=== PATIENT | male | born 1985 | race Caucasian/White ===

== ENCOUNTER 2016-11-17 04:47 | Inpatient (IN) | payer MEDICAID, OTHER ==
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
[2016-11-17] MEDS ORDERED: ZIPRASIDONE 20 MG VIAL IM PRN (08:11)
[2016-11-17] MEDS ORDERED: LORazepam 1 MG TAB PO PRN (08:11)
[2016-11-17] MEDS ORDERED: MAGNESIUM HYDROXIDE 2,400 MG/10 ML CUP PO PRN (08:11)
[2016-11-17] MEDS ORDERED: MAG HYDROX/AL HYDROX/SIMETH 30 ML CUP PO PRN (08:11)
[2016-11-17] MEDS ORDERED: ACETAMINOPHEN TAB 325 MG TAB PO PRN (08:11)
[2016-11-17 09:19] LABS: Appearance,Urine Clear (Clear); Bilirubin,Urine Negative (Negative); Glucose,Urine (UA) 1+ (Negative); Ketones,Urine Negative (Negative); Leukocyte Esterase,Urine Negative (Negative); Nitrite,Urine Negative (Negative); PH, Urine 5.5 (5.0-8.0); Protein,Urine Trace (Negative); Specific Gravity,Urine 1.019 (1.001-1.035); UA Billing (MACRO vs. MICRO) CHEM; Urobilinogen,Urine <2.0 mg/dL (<2.0)
[2016-11-17 09:35] VITALS: BMI 37.3
[2016-11-17 11:17] LABS: Basophils % (A) 1 %; CHCM 34.8; Eosinophils # (A) 0.1 k/uL (0-0.7); Eosinophils % (A) 1 %; HCT 48.3 % (39.0-53.0); HDW 2.62; HGB 16.1 gm/dL (13.0-17.5); Luc # (Auto) 0.14; Luc % (Auto) 2; Lymphocytes # (A) 2.3 k/uL (1.0-4.8); Lymphocytes % (A) 32 %; MCH 30.8 pg (25.0-35.0); MCHC 33.3 g/dL (31.0-37.0); MCV 92.5 fL (80.0-100.0); Mean Platelet Volume 7.8; Monocytes # (A) 0.3 k/uL (0-1.0); Monocytes % (A) 4 %; Neutrophils # (A) 4.3 k/uL (1.3-7.7); Neutrophils % (A) 61 %; RBC 5.23 m/uL (4.30-5.90); RDW 13.1 % (11.5-15.5); WBC 7.1 k/uL (3.8-10.6); WBC (Perox) 7.09
[2016-11-17 11:30] LABS: ALT 192 U/L (21-72); AST 115 U/L (17-59); Alkaline Phosphatase 92 U/L (38-126); Anion Gap 10 mmol/L; Blood Urea Nitrogen 9 mg/dL (9-20); Calcium 9.8 mg/dL (8.4-10.2); Carbon Dioxide 26 mmol/L (22-30); Chloride 105 mmol/L (98-107); Glucose 176 mg/dL (74-99); Non-African American GFR(MDRD) >60 (>60 ml/min/1.73 sqM); Potassium 4.3 mmol/L (3.5-5.1); Sodium 141 mmol/L (137-145); Total Bilirubin 0.8 mg/dL (0.2-1.3); Total Protein 8.1 g/dL (6.3-8.2)
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
[2016-11-17] MEDS: SERTRALINE 50 MG TAB PO SCH (16:32)
[2016-11-17] MEDS: risperiDONE ODT 1 MG TAB PO SCH (20:27)
[2016-11-18] MEDS: SERTRALINE 50 MG TAB PO SCH (09:35)
[2016-11-18] MEDS: risperiDONE ODT 1 MG TAB PO SCH ×2 (09:35→21:52)
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
[2016-11-19] MEDS: risperiDONE ODT 1 MG TAB PO SCH ×2 (10:26→21:28)
[2016-11-19] MEDS: SERTRALINE 50 MG TAB PO SCH (10:27)
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
[2016-11-20 06:58] VITALS: BP 118/56
[2016-11-20] MEDS: risperiDONE ODT 1 MG TAB PO SCH ×2 (09:32→20:52)
[2016-11-20] MEDS: SERTRALINE 50 MG TAB PO SCH (09:33)
--- NOTE | 2016-11-20 16:10 | P.PN ---
Progress Note - Text INTERVERAL HISTORY:Family meeting took place, Anurag reports it went well. SW reports no behavior dyscontrol. Anurag is excited about the possibility of pursuing a personal counselor, mother may help finance. They discussed his disability, he'll appeal and agreed to go to evaluation. He is still willing to take meds after discharge. No side effects. MENTAL STATUS EXAM: Alert and oriented 3, good eye contact, fair groomed. Speech normal volume rate production. Coherent logical and goal directed, no BRITTANY no FOI no delusions no ideas of reference. No auditory or visual hallucinations Mood euthymic affect full range No suicidal or homicidal ideation PLAN: Patient has tolerated the risperidone, will need to check his LFTs. continue inpatient hospitalization, for safety. D/C tomorrow
[2016-11-21 00:25] VITALS: PULSE 67; RESP 16; TEMP 97.6
[2016-11-21] MEDS: risperiDONE ODT 1 MG TAB PO SCH (08:43)
[2016-11-21] MEDS: SERTRALINE 50 MG TAB PO SCH (08:44)
[2016-11-21 10:07] LABS: ALT 229 U/L (21-72); AST 147 U/L (17-59)
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
[2016-11-21] MEDS ORDERED: risperiDONE ODT 1 MG TAB PO SCH (22:00)
[2016-11-22] MEDS ORDERED: risperiDONE ODT 1 MG TAB PO SCH (22:00)
== END 2016-11-21 14:12 | disposition home or self-care (01) | DRG 881 ==
LOC: SUPCPDRO 04:47 → EC 04:47 → 3MHU 08:04
PROVIDERS: ADMIT Psychiatry & Neurology Addiction Medicine; ATTEND Psychiatry & Neurology Addiction Medicine
DX: F32.9 Major depressive disorder, single episode, unspecified (principal); K76.0 Fatty (change of) liver, not elsewhere classified; F81.89 Other developmental disorders of scholastic skills; K21.9 Gastro-esophageal reflux disease without esophagitis; F41.9 Anxiety disorder, unspecified; F91.9 Conduct disorder, unspecified; Z59.9 Problem related to housing and economic circumstances, unspecified
CPT/HCPCS: 80053; 80306; 81003; 82075; 83036; 84443; 84450; 84460; 85025; 99285

== ENCOUNTER → 2021-08-13 | Outpatient (CLI) | payer OTHER ==
[~2021-08-13] MED LIST: SODIUM CHLORIDE 0.9% 50 ML IVPB NR; SODIUM CHLORIDE 0.9% 500 ML 500 ML in EMPTY BAG 1 BAG IV PRN; SOTROVIMAB (EUA) 500 MG in SODIUM CHLORIDE 0.9% 100 ML IVPB NR
[2021-08-13 13:48] VITALS: RESP 16; TEMP 98.7
[2021-08-13 14:48] VITALS: BP 122/74; PULSE 96
== END ==
LOC: PROCWHC3 13:39
PROVIDERS: ATTEND Family Medicine
DX: U07.1 COVID-19 (principal); E11.9 Type 2 diabetes mellitus without complications
CPT/HCPCS: 96360; Q0247

== ENCOUNTER 2021-12-24 10:20 | Inpatient (IN) | payer OTHER ==
[2021-12-24] MEDS ORDERED: KETOROLAC 15 MG/ML 1 ML VIAL IVP STA (12:45)
[2021-12-24] MEDS ORDERED: SODIUM CHLORIDE 0.9% 1,000 ML IV ONE (12:45)
[2021-12-24] MEDS ORDERED: ONDANSETRON 4 MG/2 ML VIAL IVP STA (12:46)
[2021-12-24] MEDS ORDERED: MORPHINE SULFATE 4 MG/ML SYRINGE IVP STA (12:46)
[2021-12-24 13:14] LABS: Basophils # (A) 0.1 k/uL (0-0.2); Basophils % (A) 1 %; Eosinophils # (A) 0.1 k/uL (0-0.7); Eosinophils % (A) 1 %; HCT 53.5 % (39.0-53.0); HGB 17.3 gm/dL (13.0-17.5); Lymphocytes # (A) 2.4 k/uL (1.0-4.8); Lymphocytes % (A) 36 %; MCH 29.8 pg (25.0-35.0); MCHC 32.4 g/dL (31.0-37.0); Mean Platelet Volume 9.5; Monocytes # (A) 0.3 k/uL (0-1.0); Monocytes % (A) 4 %; Neutrophils # (A) 3.8 k/uL (1.3-7.7); Neutrophils % (A) 56 %; Platelet Count 163 k/uL (150-450); RBC 5.81 m/uL (4.30-5.90); RDW 12.4 % (11.5-15.5); WBC 6.7 k/uL (3.8-10.6)
[2021-12-24 13:37] LABS: ALT 194 U/L (4-49); AST 81 U/L (17-59); African American GFR (CKD) >90 (>60 ml/min/1.73 sqM); Albumin 4.7 g/dL (3.5-5.0); Alkaline Phosphatase 112 U/L (38-126); Anion Gap 13 mmol/L; Blood Urea Nitrogen 16 mg/dL (9-20); Calcium 10.2 mg/dL (8.4-10.2); Carbon Dioxide 28 mmol/L (22-30); Chloride 94 mmol/L (98-107); Lipase 93 U/L (23-300); Non-African American GFR(CKD) >90 (>60 ml/min/1.73 sqM); Potassium 4.8 mmol/L (3.5-5.1); Sodium 135 mmol/L (137-145); Total Bilirubin 1.5 mg/dL (0.2-1.3); Total Protein 8.5 g/dL (6.3-8.2)
[2021-12-24 13:42] LABS: Glucose 511 mg/dL (74-99)
[2021-12-24] MEDS ORDERED: INSULIN REGULAR 100 UNIT/ML VIAL (IV) IV ONE (13:46)
--- NOTE | 2021-12-24 14:10 | ED ---
General Adult HPI - General Chief complaint: Extremity Injury, Lower Stated complaint: leg & feet pain Time Seen by Provider: 12/24/21 12:33 Source: patient, family, RN notes reviewed Mode of arrival: wheelchair Limitations: no limitations - History of Present Illness Initial comments: This a 36-year-old male presents emergency Department with chief complaint of leg pain. Patient states he has increasing leg pain from peripheral neuropathy. Patient is known diabetic poorly controlled states that he has not taken insulin several days because does not feel needles. Patient is scheduled to see endocrinology of and the month. Patient states that he has been on diabetic medications for several years. Patient's last A1c was 14. Patient states she is on gabapentin 800 mg 3 times a day. Patient states that is not helping today. Does not that he is most likely hyperglycemia is not taking meds. Denies any nausea vomiting no fevers chills no trauma - Related Data Home Medications Medication Instructions Recorded Confirmed Omeprazole 40 mg PO DAILY 08/13/21 12/24/21 Gabapentin 800 mg PO TID 12/24/21 12/24/21 Insulin Glargine,Hum.rec.anlog 20 units SQ HS 12/24/21 12/24/21 [Lantus Solostar Pen] lisinopriL [Zestril] 5 mg PO DAILY 12/24/21 12/24/21 Allergies Allergy/AdvReac Type Severity Reaction Status Date / Time metformin AdvReac Abdominal Verified 12/24/21 14:34 Pain semaglutide [From Rybelsus] AdvReac Abdominal Verified 12/24/21 14:34 Pain Review of Systems ROS Statement: Those systems with pertinent positive or pertinent negative responses have been documented in the HPI. ROS Other: All systems not noted in ROS Statement are negative. Past Medical History Past Medical History: Diabetes Mellitus, GERD/Reflux Additional Past Medical History / Comment(s): neuropathy History of Any Multi-Drug Resistant Organisms: None Reported Past Surgical History: No Surgical Hx Reported Past Psychological History: No Psychological Hx Reported Smoking Status: Never smoker Past Alcohol Use History: None Reported Past Drug Use History: None Reported - Past Family History Father Additional Family Medical History / Comment(s): Father at age 42 from overdose on anti-freeze. Mother Additional Family Medical History / Comment(s): Mother is alive at age 47 with no major medical problems. Patient has 2 brothers and 1 sister with no major medical problems. General Exam Limitations: no limitations General appearance: alert, in no apparent distress Head exam: Present: atraumatic, normocephalic, normal inspection Eye exam: Present: normal appearance, PERRL, EOMI. Absent: scleral icterus, conjunctival injection, periorbital swelling ENT exam: Present: normal exam, mucous membranes moist Neck exam: Present: normal inspection, full ROM. Absent: tenderness, meningismus, lymphadenopathy Respiratory exam: Present: normal lung sounds bilaterally. Absent: respiratory distress, wheezes, rales, rhonchi, stridor Cardiovascular Exam: Present: regular rate, normal rhythm, normal heart sounds. Absent: systolic murmur, diastolic murmur, rubs, gallop, clicks GI/Abdominal exam: Present: soft, normal bowel sounds. Absent: distended, tenderness, guarding, rebound, rigid Extremities exam: Present: normal inspection, full ROM, normal capillary refill. Absent: tenderness, pedal edema, joint swelling, calf tenderness Neurological exam: Present: alert, oriented X3, CN II-XII intact Course Vital Signs 12/24/21 10:47 Temperature 98.0 F Pulse Rate 97 Respiratory 18 Rate Blood Pressure 115/71 O2 Sat by Pulse 97 Oximetry Medical Decision Making - Medical Decision Making Patient presented for hyperglycemia, leg pain from neuropathy. Patient's persistent hyperglycemia over 500. Patient be admitted for fluid hydration, insulin drip. - Lab Data Result diagrams: 12/24/21 13:08 12/24/21 13:08 Lab Results 12/24/21 12/24/21 12/24/21 Range/Units 13:08 13:08 14:51 WBC 6.7 (3.8-10.6) k/uL RBC 5.81 (4.30-5.90) m/uL Hgb 17.3 (13.0-17.5) gm/dL Hct 53.5 H (39.0-53.0) % MCV 92.0 (80.0-100.0) fL MCH 29.8 (25.0-35.0) pg MCHC 32.4 (31.0-37.0) g/dL RDW 12.4 (11.5-15.5) % Plt Count 163 (150-450) k/uL MPV 9.5 Neutrophils % 56 % Lymphocytes % 36 % Monocytes % 4 % Eosinophils % 1 % Basophils % 1 % Neutrophils # 3.8 (1.3-7.7) k/uL Lymphocytes # 2.4 (1.0-4.8) k/uL Monocytes # 0.3 (0-1.0) k/uL Eosinophils # 0.1 (0-0.7) k/uL Basophils # 0.1 (0-0.2) k/uL Sodium 135 L (137-145) mmol/L Potassium 4.8 (3.5-5.1) mmol/L Chloride 94 L (98-107) mmol/L Carbon Dioxide 28 (22-30) mmol/L Anion Gap 13 mmol/L BUN 16 (9-20) mg/dL Creatinine 0.92 (0.66-1.25) mg/dL Est GFR (CKD-EPI)AfAm >90 (>60 ml/min/1.73 sqM) Est GFR (CKD-EPI)NonAf >90 (>60 ml/min/1.73 sqM) Glucose 511 H* (74-99) mg/dL POC Glucose (mg/dL) 496 H (75-99) mg/dL POC Glu Mail Handler Sorter ID Andrea, Malvin Calcium 10.2 (8.4-10.2) mg/dL Magnesium 2.0 (1.6-2.3) mg/dL Total Bilirubin 1.5 H (0.2-1.3) mg/dL AST 81 H (17-59) U/L ALT 194 H (4-49) U/L Alkaline Phosphatase 112 (38-126) U/L Total Protein 8.5 H (6.3-8.2) g/dL Albumin 4.7 (3.5-5.0) g/dL Lipase 93 (23-300) U/L Acetone, Qual Negative (Negative) Disposition Clinical Impression: Uncontrolled diabetes mellitus, Hyperglycemia, Peripheral neuropathic pain, Transaminitis Disposition: ADMITTED IP TO THIS HOSP Condition: Poor Referrals: Francisca Feliz MD [Primary Care Provider] - 1-2 days Time of Disposition: 15:00
[2021-12-24 15:02] LABS: Glucose,Whole Blood 496 mg/dL (75-99)
[2021-12-24] MEDS ORDERED: NALOXONE 0.4 MG/ML 1 ML VIAL IV PRN (15:15)
[2021-12-24] MEDS ORDERED: INSULIN REGULAR 100 UNIT in SODIUM CHLORIDE 0.9% 100 ML IV SCH (15:30)
[2021-12-24 15:38] LABS: Glucose,Whole Blood 373 mg/dL (75-99)
--- NOTE | 2021-12-24 15:45 | P.HPIM ---
History of Present Illness Chief Complaint: Generalized numbness and tingling in the feet Patient is a 36-year-old male with a past medical history significant for essential hypertension and diabetes type 2 insulin-dependent the presents a hospital complaining of numbness and tickling sensation in his lower extremities. Patient states that he was diagnosed with neuropathy. He was also diagnosed with diabetes however decided to stop taking insulin because it was uncomfortable. In the emergency department he was found to be hyperglycemic in the 500s, sodium of 135, creatinine within normal limits and AST LT slightly elevated at 81 and 194 respectively. Patient was examined not complaining of any worsening symptomatology including intractable nausea or vomiting. In the emergency department patient was started on insulin drip. Past Medical History Past Medical History: Diabetes Mellitus, GERD/Reflux Additional Past Medical History / Comment(s): neuropathy History of Any Multi-Drug Resistant Organisms: None Reported Past Surgical History: No Surgical Hx Reported Past Psychological History: No Psychological Hx Reported Smoking Status: Never smoker Past Alcohol Use History: None Reported Past Drug Use History: None Reported - Past Family History Father Additional Family Medical History / Comment(s): Father at age 42 from overdose on anti-freeze. Mother Additional Family Medical History / Comment(s): Mother is alive at age 47 with no major medical problems. Patient has 2 brothers and 1 sister with no major medical problems. Medications and Allergies Home Medications Medication Instructions Recorded Confirmed Type Omeprazole 40 mg PO DAILY 08/13/21 12/24/21 History Gabapentin 800 mg PO TID 12/24/21 12/24/21 History Insulin Glargine,Hum.rec.anlog 20 units SQ HS 12/24/21 12/24/21 History [Lantus Solostar Pen] lisinopriL [Zestril] 5 mg PO DAILY 12/24/21 12/24/21 History Allergies Allergy/AdvReac Type Severity Reaction Status Date / Time metformin AdvReac Abdominal Verified 12/24/21 14:34 Pain semaglutide [From Rybelsus] AdvReac Abdominal Verified 12/24/21 14:34 Pain Physical Exam Vitals: Vital Signs Temp Pulse Resp BP Pulse Ox 12/24/21 10:47 98.0 F 97 18 115/71 97 Intake and Output 12/24/21 12/24/21 12/24/21 06:59 14:59 22:59 Other: Weight 99.79 kg Gen. patient is awake alert oriented 3 Cardio normal S1/S2 Respiratory no wheezing or rhonchi Abdomen soft, nontender Extremity numbness and tingling sensation in the lower extremity neuropathic pain. Results CBC & Chem 7: 12/24/21 13:08 12/24/21 13:08 Labs: Abnormal Lab Results - Last 24 Hours (Table) 12/24/21 12/24/21 12/24/21 Range/Units 13:08 13:08 14:51 Hct 53.5 H (39.0-53.0) % Sodium 135 L (137-145) mmol/L Chloride 94 L (98-107) mmol/L Glucose 511 H* (74-99) mg/dL POC Glucose (mg/dL) 496 H (75-99) mg/dL Total Bilirubin 1.5 H (0.2-1.3) mg/dL AST 81 H (17-59) U/L ALT 194 H (4-49) U/L Total Protein 8.5 H (6.3-8.2) g/dL 12/24/21 Range/Units 15:37 Hct (39.0-53.0) % Sodium (137-145) mmol/L Chloride (98-107) mmol/L Glucose (74-99) mg/dL POC Glucose (mg/dL) 373 H (75-99) mg/dL Total Bilirubin (0.2-1.3) mg/dL AST (17-59) U/L ALT (4-49) U/L Total Protein (6.3-8.2) g/dL Assessment and Plan Assessment: #1 uncontrolled diabetes mellitus type 2 #2 essential hypertension #3 hyperlipidemia #4 neuropathy secondary to above Plan: -Admit to medicine for close monitoring -Aspiration/fall precaution -Repeat POC glucose 375 at bedside -Discontinue the use of insulin drip and will transition over to long-acting and short-acting insulin with sliding scale. -Obtain lipid panel and hemoglobin A1c -DVT prophylaxis
[2021-12-24] MEDS: SODIUM CHLORIDE 0.9% 1,000 ML IV SCH (15:47)
[2021-12-24] MEDS: GABAPENTIN 400 MG CAP PO SCH ×2 (16:17→21:09)
[2021-12-24] MEDS: INSULIN DETEMIR (LEVEMIR) 100 UNIT/ML SYR SQ SCH ×2 (17:47→21:43)
[2021-12-24 18:05] LABS: Glucose,Whole Blood 449 mg/dL (75-99)
[2021-12-24] MEDS: INSULIN ASPART (NovoLOG) 100 UNIT/ML VIAL SQ SCH ×2 (18:07→21:09)
[2021-12-24] MEDS ORDERED: INSULIN ASPART (NovoLOG) 100 UNIT/ML VIAL SQ ONE (18:17)
[2021-12-24] MEDS ORDERED: INSULIN DETEMIR (LEVEMIR) 100 UNIT/ML SYR SQ ONE (18:18)
[2021-12-24 19:36] LABS: Glucose,Whole Blood 427 mg/dL (75-99)
[2021-12-24 20:50] LABS: Glucose,Whole Blood 403 mg/dL (75-99)
[2021-12-24 22:36] LABS: HDL Cholesterol 31.1 mg/dL (40.00-60.00)
[2021-12-24 23:18] LABS: Chol/HDL Ratio 7.04 Ratio
[2021-12-25 02:31] LABS: Glucose,Whole Blood 258 mg/dL (75-99)
[2021-12-25] MEDS: SODIUM CHLORIDE 0.9% 1,000 ML IV SCH ×3 (02:45→21:57)
[2021-12-25 07:13] LABS: Glucose,Whole Blood 265 mg/dL (75-99)
[2021-12-25] MEDS: PANTOPRAZOLE 40 MG TABLET PO SCH (07:25)
[2021-12-25] MEDS: GABAPENTIN 400 MG CAP PO SCH ×3 (07:25→21:53)
[2021-12-25] MEDS: INSULIN ASPART (NovoLOG) 100 UNIT/ML VIAL SQ SCH ×5 (07:25→21:54)
[2021-12-25] MEDS: lisinopriL 5 MG TAB PO SCH (07:25)
[2021-12-25] MEDS: INSULIN DETEMIR (LEVEMIR) 100 UNIT/ML SYR SQ SCH ×2 (07:26→21:55)
[2021-12-25 10:28] LABS: Basophils # (A) 0.05 X 10*3/uL (0.00-0.10); Basophils % (A) 0.9 %; Eosinophils # (A) 0.09 X 10*3/uL (0.04-0.35); Eosinophils % (A) 1.5 %; HCT 44.4 % (39.6-50.0); HGB 14.9 g/dL (13.0-17.0); Immature Grans, Automated 0.5 %; Lymphocytes # (A) 2.37 X 10*3/uL (0.90-5.00); Lymphocytes % (A) 40.6 %; MCH 29.9 pg (27.0-32.0); MCHC 33.6 g/dL (32.0-37.0); Mean Platelet Volume 12.6 fL (9.5-12.2); Monocytes # (A) 0.43 X 10*3/uL (0.20-1.00); Monocytes % (A) 7.4 %; NRBC Per 100 WBC 0 /100 WBCS (0.0-0.0); Neutrophils # (A) 2.87 X 10*3/uL (1.80-7.70); Neutrophils % (A) 49.1 %; Platelet Count 132 X 10*3/uL (140-440); RBC 4.99 X 10*6/uL (4.40-5.60); RDW 12.3 % (11.5-14.5); WBC 5.84 X 10*3/uL (4.50-10.00)
[2021-12-25 10:39] LABS: African American GFR (CKD) 123.8 (60.0-200.0); Anion Gap 11.5 mmol/L (10.00-18.00); BUN/Creat Ratio 12.88 Ratio (12.00-20.00); Blood Urea Nitrogen 11.9 mg/dL (9.0-27.0); Calcium 8.8 mg/dL (8.7-10.3); Carbon Dioxide 26.3 mmol/L (20.0-27.5); Non-African American GFR(CKD) 106.8 (60.0-200.0); Potassium 4.2 mmol/L (3.5-5.5)
[2021-12-25 12:11] LABS: Glucose,Whole Blood 340 mg/dL (75-99)
[2021-12-25 16:47] LABS: Glucose,Whole Blood 315 mg/dL (75-99)
--- NOTE | 2021-12-25 16:49 | P.PN ---
Subjective Patient was examined at bedside not complaining of any worsening symptomatology. Glucose levels continue to be uncontrolled. I did spend some time educating the patient regarding dietary lifestyle changes. Objective - Vital Signs Vital signs: Vital Signs Temp 97.5 F L 12/25/21 13:53 Pulse 87 12/25/21 13:53 Resp 14 12/25/21 13:53 BP 120/75 12/25/21 13:53 Pulse Ox 97 12/25/21 13:53 FiO2 Intake & Output 12/24/21 12/25/21 12/25/21 18:59 06:59 18:59 Intake Total 118 478 Balance 118 478 Weight 99.79 kg 99.79 kg 99.1 kg Intake: Oral 118 478 Other: # Voids 0 1 - Exam Gen. patient is awake alert oriented 3 Cardio normal S1/S2 Respiratory no wheezing or rhonchi Abdomen soft, nontender Extremity numbness and tingling sensation in the lower extremity neuropathic pain. - Labs CBC & Chem 7: 12/25/21 06:58 12/25/21 06:58 Labs: Abnormal Lab Results - Last 24 Hours (Table) 12/24/21 12/24/21 12/24/21 Range/Units 15:50 18:03 19:34 Plt Count (140-440) X 10*3/uL MPV (9.5-12.2) fL Glucose (70-110) mg/dL POC Glucose (mg/dL) 449 H 427 H (75-99) mg/dL Hemoglobin A1c (0.0-6.0) % Triglycerides 460.00 H (0.00-149.00) mg/dL Cholesterol 219.00 H (0.00-200.00) mg/dL HDL Cholesterol 31.10 L (40.00-60.00) mg/dL 12/24/21 12/25/21 12/25/21 Range/Units 20:48 02:28 06:58 Plt Count 132 L (140-440) X 10*3/uL MPV 12.6 H (9.5-12.2) fL Glucose (70-110) mg/dL POC Glucose (mg/dL) 403 H 258 H (75-99) mg/dL Hemoglobin A1c (0.0-6.0) % Triglycerides (0.00-149.00) mg/dL Cholesterol (0.00-200.00) mg/dL HDL Cholesterol (40.00-60.00) mg/dL 12/25/21 12/25/21 12/25/21 Range/Units 06:58 06:58 07:11 Plt Count (140-440) X 10*3/uL MPV (9.5-12.2) fL Glucose 289 H (70-110) mg/dL POC Glucose (mg/dL) 265 H (75-99) mg/dL Hemoglobin A1c 12.7 H (0.0-6.0) % Triglycerides (0.00-149.00) mg/dL Cholesterol (0.00-200.00) mg/dL HDL Cholesterol (40.00-60.00) mg/dL 12/25/21 Range/Units 12:09 Plt Count (140-440) X 10*3/uL MPV (9.5-12.2) fL Glucose (70-110) mg/dL POC Glucose (mg/dL) 340 H (75-99) mg/dL Hemoglobin A1c (0.0-6.0) % Triglycerides (0.00-149.00) mg/dL Cholesterol (0.00-200.00) mg/dL HDL Cholesterol (40.00-60.00) mg/dL Assessment and Plan Assessment: #1 uncontrolled diabetes mellitus type 2 #2 essential hypertension #3 hyperlipidemia #4 neuropathy secondary to above Plan: -Admit to medicine for close monitoring -Aspiration/fall precaution -Repeat POC glucose levels still in the 300s. Increase Levemir to 13 units twice a day and short acting to 8 units 3 times a day. -Obtain lipid panel and hemoglobin A1c 12 -DVT prophylaxis Anticipate discharge in the next 24 hours.
[2021-12-25] MEDS ORDERED: INSULIN ASPART (NovoLOG) 100 UNIT/ML VIAL SQ SCH (17:30)
[2021-12-25 21:13] LABS: Glucose,Whole Blood 357 mg/dL (75-99)
[2021-12-26 02:29] LABS: Glucose,Whole Blood 321 mg/dL (75-99)
[2021-12-26 03:01] LABS: Appearance,Urine Clear (Clear); Bilirubin,Urine Negative (Negative); Blood,Urine Negative (Negative); Color,Urine Light Yellow; Glucose,Urine (UA) 4+ (Negative); Ketones,Urine 1+ (Negative); Leukocyte Esterase,Urine Negative (Negative); Nitrite,Urine Negative (Negative); PH, Urine 5.5 (5.0-8.0); Protein,Urine Negative (Negative); Specific Gravity,Urine 1.027 (1.001-1.035); Urobilinogen,Urine <2.0 mg/dL (<2.0)
[2021-12-26 07:19] LABS: Glucose,Whole Blood 322 mg/dL (75-99)
[2021-12-26] MEDS: INSULIN ASPART (NovoLOG) 100 UNIT/ML VIAL SQ SCH ×7 (08:16→21:09)
[2021-12-26] MEDS: lisinopriL 5 MG TAB PO SCH (08:17)
[2021-12-26] MEDS: PANTOPRAZOLE 40 MG TABLET PO SCH (08:17)
[2021-12-26] MEDS: INSULIN DETEMIR (LEVEMIR) 100 UNIT/ML SYR SQ SCH ×2 (08:17→21:06)
[2021-12-26] MEDS: GABAPENTIN 400 MG CAP PO SCH ×3 (08:25→21:04)
[2021-12-26] MEDS ORDERED: ENOXAPARIN 40 MG/0.4 ML SYRINGE SQ SCH (09:00)
[2021-12-26] MEDS: SODIUM CHLORIDE 0.9% 1,000 ML IV SCH ×2 (10:03→17:53)
[2021-12-26 10:21] VITALS: BMI 31.3
[2021-12-26 11:57] LABS: Glucose,Whole Blood 281 mg/dL (75-99)
[2021-12-26 14:07] LABS: Glucose,Whole Blood 322 mg/dL (75-99)
--- NOTE | 2021-12-26 15:08 | P.PN ---
Subjective Patient was examined at bedside today continues to have cheese crackers at bedside. I've educated him regarding a diabetic diet and making lifestyle changes. Patient also requested if he can get a wheelchair to help him ambulate I've encouraged him to exercise more rather than using a wheelchair. Patient has good strength bilaterally in his lower extremities. Objective - Vital Signs Vital signs: Vital Signs Temp 97.9 F 12/26/21 14:38 Pulse 86 12/26/21 14:38 Resp 18 12/26/21 14:38 BP 105/64 12/26/21 14:38 Pulse Ox 96 12/26/21 14:38 FiO2 Intake & Output 12/25/21 12/26/21 12/26/21 18:59 06:59 18:59 Intake Total 596 118 Balance 596 118 Weight 99.1 kg 99.1 kg Intake: Oral 596 118 Other: Voiding Method Toilet Toilet # Voids 1 3 3 # Bowel Movements 2 - Exam Gen. patient is awake alert oriented 3 Cardio normal S1/S2 Respiratory no wheezing or rhonchi Abdomen soft, nontender Extremity numbness and tingling sensation in the lower extremity neuropathic pain. - Labs CBC & Chem 7: 12/25/21 06:58 12/25/21 06:58 Labs: Abnormal Lab Results - Last 24 Hours (Table) 12/25/21 12/25/21 12/25/21 Range/Units 06:58 16:45 21:12 POC Glucose (mg/dL) 315 H 357 H (75-99) mg/dL Hemoglobin A1c 12.7 H (0.0-6.0) % Urine Glucose (UA) (Negative) Urine Ketones (Negative) 12/26/21 12/26/21 12/26/21 Range/Units 02:28 02:29 07:18 POC Glucose (mg/dL) 321 H 322 H (75-99) mg/dL Hemoglobin A1c (0.0-6.0) % Urine Glucose (UA) 4+ H (Negative) Urine Ketones 1+ H (Negative) 12/26/21 12/26/21 Range/Units 11:56 14:05 POC Glucose (mg/dL) 281 H 322 H (75-99) mg/dL Hemoglobin A1c (0.0-6.0) % Urine Glucose (UA) (Negative) Urine Ketones (Negative) Assessment and Plan Assessment: #1 uncontrolled diabetes mellitus type 2 #2 essential hypertension #3 hyperlipidemia #4 neuropathy secondary to above Plan: -Admit to medicine for close monitoring -Aspiration/fall precaution -Repeat POC glucose levels still in the 300s. Increase Levemir to 16 units twice a day and short acting to 11 units 3 times a day. -Obtain lipid panel and hemoglobin A1c 12 -DVT prophylaxis Disposition patient's glucose level still very high. Recommending discharging once glucose levels at least less than 250. I've educated him regarding medication compliance and dietary changes. Patient continues to have cheese crackers at bedside. Does not seem very motivated is also requesting a wheelchair.
[2021-12-26 17:08] LABS: Glucose,Whole Blood 222 mg/dL (70-110)
[2021-12-26 21:06] LABS: Glucose,Whole Blood 329 mg/dL (70-110)
[2021-12-27] MEDS: SODIUM CHLORIDE 0.9% 1,000 ML IV SCH (05:51)
[2021-12-27 07:23] LABS: Glucose,Whole Blood 207 mg/dL (70-110)
[2021-12-27] MEDS: INSULIN ASPART (NovoLOG) 100 UNIT/ML VIAL SQ SCH ×2 (08:00)
[2021-12-27] MEDS: PANTOPRAZOLE 40 MG TABLET PO SCH (08:00)
[2021-12-27] MEDS: lisinopriL 5 MG TAB PO SCH (08:00)
[2021-12-27] MEDS: INSULIN DETEMIR (LEVEMIR) 100 UNIT/ML SYR SQ SCH (08:00)
[2021-12-27 08:23] VITALS: BP 128/81; PULSE 84; RESP 18; TEMP 98.1
[2021-12-27 10:28] LABS: Basophils # (A) 0.1 k/uL (0-0.2); Basophils % (A) 1 %; Eosinophils % (A) 1 %; HCT 50.4 % (39.0-53.0); Lymphocytes # (A) 2.4 k/uL (1.0-4.8); Lymphocytes % (A) 41 %; MCHC 33.7 g/dL (31.0-37.0); Mean Platelet Volume 9.3; Monocytes # (A) 0.3 k/uL (0-1.0); Monocytes % (A) 5 %; Neutrophils # (A) 3.1 k/uL (1.3-7.7); Neutrophils % (A) 51 %; Platelet Count 162 k/uL (150-450); RBC 5.48 m/uL (4.30-5.90); RDW 12.4 % (11.5-15.5)
[2021-12-27 10:32] LABS: African American GFR (CKD) >90 (>60 ml/min/1.73 sqM); Anion Gap 13 mmol/L; Blood Urea Nitrogen 7 mg/dL (9-20); Carbon Dioxide 19 mmol/L (22-30); Chloride 107 mmol/L (98-107); Glucose 239 mg/dL (74-99); Non-African American GFR(CKD) >90 (>60 ml/min/1.73 sqM); Potassium 4.2 mmol/L (3.5-5.1); Sodium 139 mmol/L (137-145)
--- NOTE | 2021-12-27 12:26 | P.DS ---
Providers Date of admission: 12/25/21 13:04 Expected date of discharge: 12/27/21 Attending physician: Maurisio Watts MD Primary care physician: [facility] Course: Hospital course: History of Present Illness per H&P Chief Complaint: Uncontrolled type 2 diabetes mellitus Patient is a 36-year-old male with a past medical history significant for essential hypertension and diabetes type 2 insulin-dependent the presents a hospital complaining of numbness and tickling sensation in his lower extremities. Patient states that he was diagnosed with diabetic neuropathy. He was also diagnosed with diabetes however decided to stop taking insulin because it was uncomfortable. In the emergency department he was found to be hyperglycemic in the 500s, sodium of 135, creatinine within normal limits and AST LT slightly elevated at 81 and 194 respectively. Patient was examined not complaining of any worsening symptomatology including intractable nausea or vomiting. In the emergency department patient was started on insulin drip. Physical examination on discharge: General: non toxic, no distress, appears at stated age Derm: warm, dry Head: atraumatic, normocephalic, symmetric Eyes: EOMI, no lid lag, anicteric sclera Mouth: no lip lesion, mucus membranes moist Cardiovascular: S1S2 reg, no murmur, positive posterior tibial pulse bilateral, Lungs: CTA bilateral, no rhonchi, no rales , no accessory muscle use Abdominal: soft, nontender to palpation, no guarding, no appreciable organomegaly Ext: no gross muscle atrophy, no edema, no contractures Neuro: CN II-XI grossly intact, no focal neuro deficits Psych: Alert, oriented, appropriate affect Hospital course and detailed problem list: #Uncontrolled type 2 diabetes mellitus -Patient presented with uncontrolled hyperglycemia which on the 500 range. -A1c is 12 -Secondary to medical noncompliance. Patient he stated that he was taking his insulin at home -He was discharged on Lantus 15 units twice daily and NovoLog 7 units before each meal -Patient is was instructed about compliance and follow-up with his primary care physician and endocrinology #essential hypertension -Controlled -Resume home medications #Diabetic neuropathy -Resume gabapentin 800 3 times a day Patient Condition at Discharge: Stable Plan - Discharge Summary New Discharge Prescriptions: New INSULIN ASPART (NovoLOG) [NovoLOG (formulary)] 7 unit SQ AC-TID 30 Days each Continue Omeprazole 40 mg PO DAILY lisinopriL [Zestril] 5 mg PO DAILY Gabapentin 800 mg PO TID Changed Insulin Glargine,Hum.rec.anlog [Lantus Solostar Pen] 15 units SQ BID 30 Days each Discharge Medication List Omeprazole 40 mg PO DAILY 08/13/21 [History] Gabapentin 800 mg PO TID 12/24/21 [History] lisinopriL [Zestril] 5 mg PO DAILY 12/24/21 [History] INSULIN ASPART (NovoLOG) [NovoLOG (formulary)] 7 unit SQ AC-TID 30 Days each 12/27/21 [Rx] Insulin Glargine,Hum.rec.anlog [Lantus Solostar Pen] 15 units SQ BID 30 Days each 12/27/21 [Rx] Follow up Appointment(s)/Referral(s): Francisca Feliz MD [Primary Care Provider] - 1-2 days (please follow up with endocrinology with in next few days for diabetic education ) Patient Instructions/Handouts: Diabetic Hyperglycemia (GEN), Hemoglobin A1c (GEN) Discharge Disposition: HOME SELF-CARE
[2021-12-27] MEDS ORDERED: INSULIN ASPART (NovoLOG) 100 UNIT/ML VIAL SQ SCH (12:30)
[2021-12-27] MEDS ORDERED: INSULIN DETEMIR (LEVEMIR) 100 UNIT/ML SYR SQ SCH (21:00)
[2021-12-28] MEDS ORDERED: INSULIN DETEMIR (LEVEMIR) 100 UNIT/ML SYR SQ SCH (07:00)
== END 2021-12-27 11:33 | disposition home or self-care (01) | DRG 639 ==
LOC: EC 10:20 → 3SCARD 15:18 → 6NMEDSUR 17:10 → OBSVTOIN 12-25 13:04
PROVIDERS: ADMIT Internal Medicine; ATTEND Internal Medicine
DX: E11.65 Type 2 diabetes mellitus with hyperglycemia (principal); I10 Essential (primary) hypertension; K21.9 Gastro-esophageal reflux disease without esophagitis; T38.3X6A Underdosing of insulin and oral hypoglycemic [antidiabetic] drugs, initial encounter; E78.5 Hyperlipidemia, unspecified; E11.42 Type 2 diabetes mellitus with diabetic polyneuropathy; Z79.4 Long term (current) use of insulin; Z79.899 Other long term (current) drug therapy; Z88.8 Allergy status to other drugs, medicaments and biological substances; Z71.3 Dietary counseling and surveillance; Z91.14 Patient's other noncompliance with medication regimen; Z91.138 Patient's unintentional underdosing of medication regimen for other reason
CPT/HCPCS: 36415; 80048; 80053; 80061; 81003; 82009; 83036; 83690; 83721; 83735; 85025; 96361; 96374; 96375; 99284

== ENCOUNTER → 2023-06-03 | Outpatient (CLI) | payer OTHER ==
--- NOTE | 2023-06-03 17:08 | P.SLEEP ---
History of Present Illness H&P Date: 06/03/23 This is a 37-year-old male patient was referred to me for chronic insomnia. The patient states that he's unable to sleep for more than an hour on a daily basis. Sometimes he sleeps 30 minutes. His sleep has been very much a reticulocyte. On few occasions, he was able to sleep around 3 hours. He is chronically fatigued and tired during the day. This is an ongoing problem that he has had for at least 20 years. No history of snoring. No witnessed apneas. No choking or gasping for air in the middle of the night. No grinding of the teeth. No restlessness and lower extremities. Denies waking up in the middle of the night choking or gasping for air. No heartburn. No chest pain. Very irregular in terms of his sleep schedule. He is currently living with his parents. He is on disability and is unemployed at this point. He is past medical history includes history of severe PTSD. He has been placed in certain social situations which did not elaborate and this is often to PTSD. He has been subjected to into law bullying during his younger age. He also has history of severe neuropathy, chronic anxiety, depression, chronic migraines and schizophrenia. I believe he is also diabetic and he is not taking any form of medication at this point in time. He suffers from neuropathy and chronic pain in his lower extremities. The patient is exhausted various treatments for neuropathy which includes gabapentin and Lyrica and he did not respond. He has also been treated for PTSD and he did not continue the treatment as the patient reported side effects. Most recent treatment for that was Cymbalta. In terms of his chronic anxiety/insomnia/depression condition, the patient has been placed on various treatments and this has included Ambien, Restoril, amitriptyline, Remeron, Atarax, and trazodone. He states that all of his medications failed to optimize and improve her sleep quality. He describes his bedroom environment to be quite comfortable. He clearly states that he is in a lot of pain and he has to constantly move to get himself comfortable. No nightmares. No hallucinations. No sleep paralysis. Review of Systems Constitutional: Reports as per HPI Eyes: denies as per HPI, denies blurred vision, denies bulging eye, denies decreased vision, denies diplopia, denies discharge, denies dry eye, denies irritation, denies itching, denies pain, denies photophobia, denies loss of peripheral vision, denies loss of vision, denies tunnel vision/blind spots Ears: deny: decreased hearing, ear discharge, earache, tinnitus Ears, nose, mouth and throat: Reports as per HPI Breasts: absent: as per HPI, gynecomastia Respiratory: Reports as per HPI Gastrointestinal: Reports as per HPI Genitourinary: Reports as per HPI Musculoskeletal: Reports as per HPI Musculoskeletal: absent: ankle pain, ankle stiffness, ankle swelling Integumentary: Reports as per HPI Neurological: Reports as per HPI, Reports headaches, Reports migraines, Reports motor disturbance, Reports numbness, Reports paresthesias, Reports spasticity, Reports tingling Psychiatric: Reports as per HPI, Reports anxiety (PTSD, schizophrenia), Reports depression, Reports difficulty concentrating, Reports sleep disturbances Endocrine: Reports as per HPI Hematologic/Lymphatic: Reports as per HPI Allergic/Immunologic: Reports as per HPI Past Medical History Past Medical History: Diabetes Mellitus, GERD/Reflux Additional Past Medical History / Comment(s): neuropathy History of Any Multi-Drug Resistant Organisms: None Reported Past Surgical History: No Surgical Hx Reported Past Psychological History: Anxiety, Depression, PTSD, Schizophrenia Smoking Status: Never smoker - Past Family History Father Additional Family Medical History / Comment(s): Father at age 42 from overdose on anti-freeze. Mother Additional Family Medical History / Comment(s): Mother is alive at age 47 with no major medical problems. Patient has 2 brothers and 1 sister with no major medical problems. Medications and Allergies Home Medications Medication Instructions Recorded Confirmed Type Omeprazole 40 mg PO DAILY 08/13/21 12/24/21 History Allergies Allergy/AdvReac Type Severity Reaction Status Date / Time metformin AdvReac Abdominal Verified 12/24/21 14:34 Pain semaglutide [From Rybelsus] AdvReac Abdominal Verified 12/24/21 14:34 Pain Physical Exam BP is 113/75, pulse is 80, respirations 12, temperature 97.8, weight is 199 pounds, height is 510, saturation 96% on room air, neck size is 16-1/4 of an inch, Oxford score is at 5, BMI 28.5 The patient appeared well nourished and normally developed. Vital signs as documented. Head exam is unremarkable. No scleral icterus or corneal arcus noted. Neck is without jugular venous distension, thyromegaly, or carotid bruits. Carotid upstrokes are brisk bilaterally. Lungs are clear to auscultation and percussion. Cardiac exam reveals the PMI to be normally sized and situated. Rhythm is regular. First and second heart sounds normal. No murmurs, rubs or gallops. Abdominal exam reveals normal bowel sounds, no masses, no organomegaly and no aortic enlargement. Extremities are nonedematous and both femoral and pedal pulses are normal.Examination of the skin revealed no evidence of significant rashes, suspicious appearing nevi or other concerning lesions.Neurologically, the patient is awake and alert and the patient does not have any focal neurological deficit. Cranial nerves are essentially intact. Assessment and Plan Plan: Chronic insomnia, likely, with insomnia related to his chronic psychiatric disorders. In addition, other comorbidities may be contributing to this including his neuropathy and headaches. Chronic peripheral neuropathy Chronic migraine/headaches Chronic anxiety/depression PTSD Schizophrenia Diabetes mellitus type 2 Acid reflux Plan Discussed with the patient principals of sleep restriction and stimulus control. This is part of cognitive behavioral therapy that he is to implement for chronic insomnia. Relaxation techniques were discussed Music therapy Implement a good sleep hygiene measures was emphasized and we went over his sleep hygiene As far as drug therapy, the patient has utilized every single drug known to me that may potentially help with insomnia and none of this treatments have worked. In fact, pharmacotherapy and chronic insomnia may not be absolutely successful. Recommend treating his chronic pain and anxiety and depression and PTSD which may potentially also help in sleep induction and promoting sleep. Did not see the need for a sleep study His insomnia is a symptom of his long-term comorbidities. Refer back to psychiatry. Sleep Note - Sleep Note Sleep Note: Temperature: Pulse Rate: Respiratory Rate: Blood Pressure: SpO2: Height: Weight: BMI: Neck Circumference:
== END ==
LOC: 3 N SLEEP 14:28
PROVIDERS: ATTEND Internal Medicine Critical Care Medicine
DX: G47.00 Insomnia, unspecified (principal); G90.09 Other idiopathic peripheral autonomic neuropathy; G43.909 Migraine, unspecified, not intractable, without status migrainosus; A41.9 Sepsis, unspecified organism; F43.10 Post-traumatic stress disorder, unspecified; F20.9 Schizophrenia, unspecified; E11.9 Type 2 diabetes mellitus without complications; K21.9 Gastro-esophageal reflux disease without esophagitis; F32.A Depression, unspecified; F41.9 Anxiety disorder, unspecified; Z88.2 Allergy status to sulfonamides; Z88.1 Allergy status to other antibiotic agents
CPT/HCPCS: 99211